=== PATIENT | male | born 1965 | race Asian ===

== ENCOUNTER 2021-05-16 10:32 | Outpatient (CLI) | payer OTHER ==
[2021-05-16 11:19] LABS: POTASSIUM 3.4 mmol/L (3.6-5.2)
== END 2021-05-16 19:02 | disposition home or self-care (01) ==
LOC: LABW 10:32 → RAD 10:32 → LABW 19:02
PROVIDERS: ATTEND Internal Medicine
DX: H54.3 Unqualified visual loss, both eyes (principal); M19.90 Unspecified osteoarthritis, unspecified site; G58.9 Mononeuropathy, unspecified; M54.9 Dorsalgia, unspecified; M25.562 Pain in left knee; M25.561 Pain in right knee
CPT/HCPCS: 36415; 80053